=== PATIENT | female | born 1995 | race Caucasian/White ===

== ENCOUNTER 2017-06-09 10:16 | Day surgery (SDC) | payer OTHER ==
[~2017-06-09] VITALS: Ht 149.9 cm; Wt 59.5 kg
[~2017-06-09 10:16] MED LIST: BUPIVACAINE LIPOSOME/PF 1.3%-13.3MG/ML SUSPENSION 20 ML VIAL INJ ONE; DEXTROSE 5%-LACTATED RINGERS 1,000 ML IV SCH; RINGERS SOLUTION,LACTATED 1,000 ML IV ONE
[2017-06-09] MEDS ORDERED: FentaNYL CITRATE-PF 100 MCG/2 ML VIAL IVP ONE (12:00)
[2017-06-09] MEDS ORDERED: LIDOCAINE HCL/PF 2% 5 ML VIAL INJ ONE (12:00)
[2017-06-09] MEDS ORDERED: PROPOFOL 1% 20 ML VIAL IVP ONE (12:00)
[2017-06-09] MEDS ORDERED: MIDAZOLAM HCL 2 MG/2 ML VIAL IVP ONE (12:00)
[2017-06-09] MEDS ORDERED: BUPIVACAINE HCL/PF 0.25% 30 ML VIAL ONE (12:11)
== END 2017-06-09 14:05 | disposition home or self-care (01) ==
LOC: SURGERY 10:16
PROVIDERS: ATTEND Obstetrics & Gynecology
DX: N75.0 Cyst of Bartholin's gland (principal); Z72.89 Other problems related to lifestyle; Z98.890 Other specified postprocedural states
CPT/HCPCS: 57410; J2250; J2704; J3010; J3490 ×2; J7120; C9290